=== PATIENT | male | born 1950 | race Caucasian/White ===

== ENCOUNTER 2022-04-22 13:24 | Outpatient (CLI) | payer MEDICARE | END 2022-04-22 13:25 | disposition home or self-care (01) | LOC: CSHMRI 13:24 | PROVIDERS: ATTEND Family Medicine | DX: R41.82 Altered mental status, unspecified (principal); G93.9 Disorder of brain, unspecified; R90.82 White matter disease, unspecified; Z86.73 Personal history of transient ischemic attack (TIA), and cerebral infarction without residual deficits | CPT/HCPCS: 70551 ==